=== PATIENT | female | born 1950 | race Caucasian/White ===

== ENCOUNTER → 2016-12-16 | Outpatient (CLI) | payer MEDICARE, OTHER ==
--- NOTE | 2016-12-16 10:33 | KCIC ---
2 view chest HISTORY: Cough for 3 weeks. Nonsmoker. COMPARISON: None FINDINGS: Cardiac silhouette is not enlarged. No evidence of pneumothorax. No pleural effusion. No evidence of pulmonary vascular congestion. Subtle opacity in the right lower lobe, may just represent atelectasis versus a mild infiltrate. Mild aortic aortic atherosclerotic calcifications are noted. IMPRESSION: Subtle opacity in the right lung base, may represent atelectasis versus mild pneumonia. Recommend short-term chest x-ray follow-up. Electronically signed by: Pepe Tavarez MD (12/16/2016 10:30 AM)
== END | disposition home or self-care (01) ==
LOC: KCIC 09:44
PROVIDERS: ATTEND Family Medicine
DX: R05 Cough (principal)
CPT/HCPCS: 71020

== ENCOUNTER → 2017-01-24 | Outpatient (CLI) | payer MEDICARE ==
--- NOTE | 2017-01-24 14:23 | KCIC ---
Indication: Abnormal previous chest x-ray. Time of exam 1:16 PM Correlation is made with prior chest from 12/16/2016. The heart size is stable. Lungs appear to be clear. No infiltrates are detected on today's study. No effusion or pneumothorax is seen. IMPRESSION: No acute feature identified. Electronically signed by: Aquilino Brown MD (01/24/2017 2:20 PM) [id number]
== END | disposition home or self-care (01) ==
LOC: KCIC 13:05
PROVIDERS: ATTEND Family Medicine
DX: R91.8 Other nonspecific abnormal finding of lung field (principal)
CPT/HCPCS: 71020

== ENCOUNTER → 2017-05-27 | Outpatient (CLI) | payer MEDICARE ==
--- NOTE | 2017-05-27 15:40 | KCIC ---
DATE: 05/27/2017. EXAM: MAMMO JAGRUTI SCREENING BILATERAL. HISTORY: Routine mammographic screening. COMPARISON: 02/12/2015. This study was interpreted with the benefit of Computerized Aided Detection (CAD). FINDINGS: The breast parenchyma is primarily fatty replaced. Breast parenchyma level density A.. There are no suspicious masses, microcalcifications or architectural distortion. A dilated ducts superiorly on the right has been stable chronically. Scattered calcifications bilaterally are benign. BI-RADS CATEGORY: 2 BENIGN FINDING(S). RECOMMENDED FOLLOW-UP: 12M 12 MONTH FOLLOW-UP. PQRS compliance statement: Patient information was entered into a reminder system with a target due date 05/27/2018 for the next mammogram. Mammography is a sensitive method for finding small breast cancers, but it does not detect them all and is not a substitute for careful clinical examination. A negative mammogram does not negate a clinically suspicious finding and should not result in delay in biopsying a clinically suspicious abnormality. "Our facility is accredited by the [employer] Mammography Program."
== END | disposition home or self-care (01) ==
LOC: KCIC MAMMO 14:00
PROVIDERS: ATTEND Family Medicine
DX: Z12.31 Encounter for screening mammogram for malignant neoplasm of breast (principal)
CPT/HCPCS: 77063; G0202; 77067